=== PATIENT | female | born 1970 | race Caucasian/White ===

== ENCOUNTER 2017-02-15 06:47 | Day surgery (SDC) | payer OTHER ==
[~2017-02-15] VITALS: Ht 160 cm; Wt 85.0 kg
--- NOTE | 2017-02-19 09:55 | OR ---
ADMIT: 02/15/2017 RM/LOC: [facility] MR#: [id number] [address] [id number] GUCCI SIDHU [address] [place] [address] Operative/Delivery Room Report SEX: F AGE: 46 : 1970 SURGERY DATE: 02/15/2017 SURGEON: Darrick Thornton MD PREOPERATIVE DIAGNOSES: 1. Gastroesophageal reflux disease. 2. Dysphagia. POSTOPERATIVE DIAGNOSIS: Mild esophagitis. PROCEDURE: Esophagogastroduodenoscopy with biopsy. ANESTHESIA: IV general. DESCRIPTION OF PROCEDURE: The patient was taken to the endoscopy suite and placed left side down on her hospital cart. A bite-block was placed and IV sedation was established. The upper endoscope was advanced through the oropharynx into the esophagus without difficulty. The scope was pushed under visualization of the stomach. Air was used to insufflate the stomach. The pylorus was intubated. The first and second portions of the duodenum were examined and appeared normal. The scope was withdrawn to the stomach. The antrum, body, and fundus all appeared normal. On retroflexion of the scope, no significant hiatal hernia could be found. The scope was withdrawn to the gastroesophageal junction where there was mild inflammation without stricture or Bethea's changes. Biopsies at this level were obtained. The remainder of the esophageal mucosa appeared grossly normal with no endoscopic findings of the eosinophilic esophagitis. Mid esophageal biopsies were obtained to evaluate for that. The scope was withdrawn, air was suctioned. The patient tolerated the procedure well and transferred to the recovery area in stable condition. Darrick Thornton MD/ arnaud JOB #: [id number] CC: Darrick Thornton, Attending Physician Simon Watson, Family Physician
== END 2017-02-15 11:20 | disposition home or self-care (01) ==
LOC: SSS 06:47
PROC: 0DB48ZX Excision of Esophagogastric Junction, Via Natural or Artificial Opening Endoscopic, Diagnostic (ICD-10-PCS; principal; 2017-02-15)
PROC: 0DB28ZX Excision of Middle Esophagus, Via Natural or Artificial Opening Endoscopic, Diagnostic (ICD-10-PCS; principal; 2017-02-15)
DX: K21.0 Gastro-esophageal reflux disease with esophagitis (principal); F17.210 Nicotine dependence, cigarettes, uncomplicated; Z88.0 Allergy status to penicillin; Z88.1 Allergy status to other antibiotic agents; Z90.49 Acquired absence of other specified parts of digestive tract; Z90.710 Acquired absence of both cervix and uterus; Z98.890 Other specified postprocedural states